=== PATIENT | male | born 1985 | race Caucasian/White ===

== ENCOUNTER 2025-01-04 20:39 | Emergency (ER) | payer BC, SELFPAY ==
[2025-01-04 20:40] VITALS: BMI 28.7
[2025-01-04 21:30] VITALS: BP 130/88; PULSE 98; RESP 20; TEMP 37; O2SAT 95
--- NOTE | 2025-01-04 21:38 | EDRME_ITS ---
Rapid Medical Screening Exam RME Arrival date/time: 01/04/25 20:39 Chief Complaint: Abdominal Pain Time Seen by Provider: 01/04/25 21:37 Vital signs: Vital Signs Temperature 98.6 F 01/04/25 21:30 Pulse Rate 98 01/04/25 21:30 Respiratory Rate 20 01/04/25 21:30 Blood Pressure 130/88 H 01/04/25 21:30 Pulse Oximetry (%) 95 01/04/25 21:30 Oxygen Delivery Method Room Air 01/04/25 21:30 Vital signs reviewed by provider: Yes RME Narrative: 39-year-old male with history of kidney stone 3 years ago on the left presenting to the emergency department with right flank pain x 1 day, now 3 out of 10 after taking with [place]. pain when attempting. Patient is allergic to doxycycline not ceftriaxone.
--- NOTE | 2025-01-04 21:41 | XR_ITS ---
Examination: CT abdomen and pelvis without contrast. Coronal 3-D reconstructions. Sagittal 2-D reconstructions. Date and time of exam:January 04, 2025 10:22 PM Comparison December 26, 2021 INDICATIONS: Right-sided flank pain today history kidney stones CTDI: vol (mGy): , 8.78 DLP: (mGycm): 482 Technique: Axial images of the abdomen have been obtained, 3 mm slice thickness Intravenous contrast material has not been administered. Low dose protocols were performed. One or more of the following dose reduction techniques were used; automated exposure control, adjustment of the mA and/or KV according to patient size, use of iterative reconstruction technique. Findings: Diffuse fatty infiltration throughout the liver Contracted gallbladder No pancreatic or adrenal mass Bilateral 1 to 2 mm renal calculi, no hydronephrosis or ureteral calculi 12 mm fat-containing umbilical hernia No pericecal inflammatory change 2 mm calculus in the urinary bladder No bowel obstruction IMPRESSION: Bilateral 1 to 2 mm renal calculi, no hydronephrosis or ureteral calculi 2 mm calculus in the urinary bladder
[2025-01-04] MEDS: KETOROLAC INJ 60 MG/2 ML VIAL 15 MG IM (21:53)
[2025-01-04] MEDS: ONDANSETRON ODT 4 MG TABRAP PO (21:53)
[2025-01-04 22:37] LABS: Hematocrit 42.3 % (41.0-53.0); Hemoglobin 15.1 g/dL (13.5-16.0); Mean Corpuscular HGB Conc 35.7 g/dl (31.0-37.0); Mean Corpuscular Hemoglobin 29.8 pg (25.0-35.0); Mean Corpuscular Volume 83 fL (80-100); Neutrophils % (Auto) 67 % (37-80); Platelet Count 267 Thou/mm3 (140-440); RDW Standard Deviation 41.1 fL (35.1-43.9); Red Blood Count 5.07 Miln/mm3 (4.50-5.90); White Blood Count 9.9 Thou/mm3 (3.8-10.6)
[2025-01-04 22:38] LABS: Basophils # (Auto) 0.1 Thou/mm3 (0.0-0.2); Basophils % (Auto) 1 % (0-2.5); Eosinophils # (Auto) 0.2 Thou/mm3 (0.0-0.5); Eosinophils % (Auto) 2 % (0-10); Immature Granulocytes % (Auto) 1 % (0-0); Immature Granulocytes Auto 0.05 Thou/mm3 (0.00-0.00); Lymphocytes % (Auto) 20 % (10-50); Monocytes # (Auto) 1.1 Thou/mm3 (0.0-0.8); Monocytes % (Auto) 11 % (0-12); Neutrophils # (Auto) 6.6 Thou/mm3 (1.8-7.7); Nucleated Red Blood Cell % 0 /100 WBC (0)
[2025-01-04 23:02] LABS: Collection Type, Urine Voided
[2025-01-04 23:02] LABS: Alanine Aminotransferase 87 U/L (10-49); Albumin, Serum 4.5 gm/dL (3.5-5.0); Albumin/Globulin Ratio 1.6 (1.2-2.2); Alkaline Phosphatase 83 U/L (46-116); Anion Gap 11 (7-16); Aspartate Amino Transferase 37 U/L (0-34); BUN/Creatinine Ratio 8 Ratio (12-20); Bilirubin,Total 0.5 mg/dL (0.3-1.2); Blood Urea Nitrogen 11 mg/dL (9-23); Calcium 9.1 mg/dL (8.3-10.6); Calcium (Corrected) 9.1 mg/dL (8.5-10.1); Carbon Dioxide 23.4 mMol/L (20.0-31.0); Chloride 107 mMol/L (98-107); Creatinine (Component) 1.3 mg/dL (0.6-1.3); Estimated Creatinine Clearance 87.3 mL/min (>60); Globulin 2.8 gm/dL (2.3-3.5); Glucose 105 mg/dL (74-106); Osmolality,Calculated 280 (275-295); Potassium 3.6 mMol/L (3.4-5.1); Sodium 141 mMol/L (136-145); Total Protein 7.3 gm/dL (5.7-8.2); eGFR > 60 See Note
[2025-01-04 23:17] LABS: Bilirubin,Urine Negative (Negative); Blood,Urine 3+ (Negative); Budding Yeast,Urine Present; Clarity,Urine Turbid (Clear/Hazy); Color,Urine Yellow (Lt Yel-Yel); Culture Indicated,Urine Not Indicated; Glucose, Urine Negative (Negative); Hyaline Casts,Urine < 1 /hpf (0-1); Ketones,Urine Negative (Negative); Leukocyte Esterase,Urine Negative (Negative); Nitrite,Urine Negative (Negative); Protein,Urine Trace (Neg - Trace); RBC,Urine 335 /hpf (0-3); Specific Gravity,Urine 1.024 (1.001-1.035); Squamous Epithelial Cell,Urine < 1 /hpf (0-5); WBC,Urine 5 /hpf (0-5)
--- NOTE | 2025-01-05 01:55 | EDNOTE_ITS ---
ED Abdominal Pain RME/HPI General Chief Complaint: Abdominal Pain Stated complaint: RIGHT FLANK PAIN Time seen by provider: 01/04/25 21:37 Arrival date/time: 01/04/25 20:39 RME / HPI RME / HPI narrative: 39-year-old male with history of kidney stone 3 years ago on the left presenting to the emergency department with right flank pain x 1 day, now 3 out of 10 after taking with [place]. pain when attempting. Patient is allergic to doxycycline not ceftriaxone. Related Data Home Medications ?Medication ?Instructions ?Recorded ?Confirmed acetaminophen 500 mg tablet 500 mg PO Q6HR PRN PAIN #0 tabs 03/11/16 (Tylenol Extra Strength) ofloxacin 0.3 % ear drops 4 drp LEFT EAR TID #5 mL ranitidine HCl 150 mg tablet 150 mg PO BID #0 tabs (Zantac) Previous Rx's ?Medication ?Instructions ?Recorded hydrocodone 5 mg-acetaminophen 325 1 tab PO BID PRN pa in #10 tabs 12/06/20 mg tablet ibuprofen 800 mg tablet 800 mg PO TID PRN pain #30 t abs 12/06/20 hydrocodone 7.5 mg-acetaminophen 1 tab PO Q6H PRN pain #16 tabs 12/26/21 325 mg tablet Allergies Allergy/AdvReac Type Severity Reaction Status Date / Time doxycycline Allergy Severe Hives Verified 01/04/25 21:57 Course Orders Category Date Time Status CT abdomen pelvis wo con Stat Exams 01/04/25 21:41 Completed CBC Stat Lab 01/04/25 22:15 Completed CMP [Comprehensive Metabolic Panel] Stat Lab 01/04/25 22:15 Completed Urinalysis, C/S if Indicated Stat Lab 01/04/25 22:50 Completed Ketorolac Inj [Toradol Inj] Med 01/04/25 21:40 Discontinued 15 mg IM X1 ONE Ondansetron Odt [Zofran Odt] Med 01/04/25 21:43 Discontinued 4 mg PO X1 ONE Vital Signs Vital signs: Vital Signs Temperature 98.6 F 01/04/25 21:30 Pulse Rate 98 01/04/25 21:30 Respiratory Rate 20 01/04/25 21:30 Blood Pressure 130/88 H 01/04/25 21:30 Pulse Oximetry (%) 95 01/04/25 21:30 Oxygen Delivery Method Room Air 01/04/25 21:30 Abdominal Pain MDM Medications / Prescriptions Medication administrations:: Medication Administration History Discontinued Medications Ketorolac Tromethamine (Ketorolac Inj 60 Mg/2 Ml Vial) 15 mg IM X1 ONE Stop: 01/04/25 21:41 Last Admin: 01/04/25 21:53 Dose: 15 mg Documented By: Ondansetron HCl (Ondansetron Odt 4 Mg Tabrap) 4 mg PO X1 ONE; Protocol Stop: 01/04/25 21:44 Last Admin: 01/04/25 21:53 Dose: 4 mg Documented By: Discharge Plan Prescriptions/Referrals Prescriptions/Med Rec: No Action acetaminophen [Tylenol Extra Strength] 500 MG tablet 500 mg PO Q6HR PRN (Reason: PAIN) Qty: 0 ofloxacin 5 ML drops 4 drp LEFT EAR TID Qty: 5 ranitidine HCl [Zantac] 150 MG tablet 150 mg PO BID Qty: 0 ibuprofen 800 mg tablet 800 mg PO TID PRN (Reason: pain) Qty: 30 0RF hydrocodone-acetaminophen 5-325 mg tablet 1 tab PO BID MDD 10 PRN (Reason: pain) Qty: 10 0RF hydrocodone-acetaminophen 7.5-325 mg tablet 1 tab PO Q6H MDD 4 tabs om 24 hours PRN (Reason: pain) Qty: 16 0RF Referrals: Sanjay Whitehead MD [Primary Care Provider] - In 1 week Patient/Caregiver Discharge Instructions Print Language: Lithuanian
--- NOTE | 2025-01-05 01:56 | PD.EDBACK ---
ED Back Injury Pain RME/HPI General Chief Complaint: Abdominal Pain Stated Complaint: RIGHT FLANK PAIN Time Seen by Provider: 01/04/25 21:37 Source: patient Arrival date/time: 01/04/25 20:39 Mode of arrival: ambulatory Limitations: no limitations RME / HPI RME / HPI Narrative: 39-year-old male with history of kidney stone 3 years ago on the left presenting to the emergency department with right flank pain x 1 day, now 3 out of 10 after taking with [place]. pain when attempting. Patient is allergic to doxycycline not ceftriaxone. DR. CRUZ?S MAIN ED EVALUATION: 39-year-old male with history of GERD presenting to the emergency department via private auto who is presenting for chief complaint of right flank pain x 1 day. pain is a 3/10 after [place]. Patient reports allergy to Doxycycline and Rocephin. Patient denies any other associated symptoms or medical complaints. - PMH:?GERD - PSH: Denies - Social history: Former smoker - Current medications: Reviewed PCP is Sanjay Whitehead MD MD Complaint: back pain Onset (ago): day(s) (1) Location: right flank Quality: sharp Severity scale (1-10): 3 (After [place]) Related Data Home Medications ?Medication ?Instructions ?Recorded ?Confirmed acetaminophen 500 mg tablet 500 mg PO Q6HR PRN PAIN #0 tabs 03/11/16 (Tylenol Extra Strength) ofloxacin 0.3 % ear drops 4 drp LEFT EAR TID #5 mL 03/11/16 ranitidine HCl 150 mg tablet 150 mg PO BID #0 tabs 03/11/16 (Zantac) Previous Rx's ?Medication ?Instructions ?Recorded hydrocodone 5 mg-acetaminophen 325 1 tab PO BID PRN pain #10 tabs 12/06/20 mg tablet ibuprofen 800 mg tablet 800 mg PO TID PRN pain #30 tabs 12/06/20 hydrocodone 7.5 mg-acetaminophen 1 tab PO Q6H PRN pain #16 tabs 12/26/21 325 mg tablet codeine sulfate 30 mg tablet 30 mg PO BID PRN pain #10 tabs 01/05/25 erythromycin 5 mg/gram (0.5 %) eye 0.5 inch ophthalmic (eye) TID #3.5 01/05/25 ointment grams Allergies Allergy/AdvReac Type Severity Reaction Status Date / Time doxycycline Allergy Severe Hives Verified 01/04/25 21:57 Review of Systems Review of Systems Systems Reviewed: All systems reviewed, normal except as documented Musculoskeletal Musculoskeletal: Reports other (Right flank pain) Past Medical History Past Medical History GASTROINTESTINAL: Positive Gastroesophageal Reflux Disease Social History SMOKING STATUS: Former smoker ED Exam General Limitations: Present no limitations General appearance: Present alert and other (sweaty) Head Head exam: Present atraumatic, normocephalic and normal inspection Eye Eye exam: Present normal appearance, PERRL and EOMI; Absent nystagmus ENT ENT exam: Present normal exam, normal oropharynx, mucous membranes moist and TM's normal bilaterally Neck Neck exam: Present normal inspection, full ROM and trachea midline; Absent tenderness Chest Chest inspection: Present normal inspection and symmetric chest wall rise; Absent tenderness Respiratory Respiratory exam: Present normal lung sounds bilaterally; Absent respiratory distress, wheezes or stridor Cardiovascular Cardiovascular exam: Present regular rate, normal rhythm and normal heart sounds; Absent rubs or gallop Abdominal Exam Abdominal exam: Present soft and normal bowel sounds; Absent distention, tenderness, guarding or rebound Extremities Exam Extremities exam: Present normal inspection, full ROM and normal capillary refill; Absent tenderness or pedal edema Back Exam Back exam: Present CVA tenderness (R) Neurological Exam Neurological exam: Present alert, oriented X3, CN II-XII intact and normal gait Psychiatric Psychiatric exam: Present normal affect and normal mood; Absent depressed, agitated or anxious Skin Skin exam: Present warm, intact, normal color and diaphoresis; Absent rash Course Quality Measures none Orders Category Date Time Status CT abdomen pelvis wo con Stat Exams 01/04/25 21:41 Completed CBC Stat Lab 01/04/25 22:15 Completed CMP [Comprehensive Metabolic Panel] Stat Lab 01/04/25 22:15 Completed Urinalysis, C/S if Indicated Stat Lab 01/04/25 22:50 Completed Erythromycin Op Oint 0.5% Med 01/05/25 02:01 Discontinued 1 gm BOTH EYES X1 ONE HYDROcodone*/APAP 5/325 [[place] 5/325] Med 01/05/25 02:01 Discontinued 1 tab PO X1 ONE Ketorolac Inj [Toradol Inj] Med 01/04/25 21:40 Discontinued 15 mg IM X1 ONE Ondansetron Odt [Zofran Odt] Med 01/04/25 21:43 Discontinued 4 mg PO X1 ONE Vital Signs Vital signs: Vital Signs Temperature 98.6 F 01/04/25 21:30 Pulse Rate 98 01/04/25 21:30 Respiratory Rate 20 01/04/25 21:30 Blood Pressure 130/88 H 01/04/25 21:30 Pulse Oximetry (%) 95 01/04/25 21:30 Oxygen Delivery Method Room Air 01/04/25 21:30 Back Pain / Injury MDM Narrative MDM Narrative:: Scribe Attestation: 01/05/2025 Tyesha Fischer am scribing for and in the presence of Dr. Cruz. Provider Notation: Although this document has been carefully reviewed, there may still be some phonetic and other typographical errors.? These errors are purely grammatical due to imperfections in the software program and should not be construed in any way to compromise the substance of the patient's medical care during this visit. 39-year-old male with history of GERD presenting to the emergency department via private auto who is presenting for chief complaint of right flank pain x 1 day. ROS: right flank plank x 1 day. Differential diagnoses include UTI, renal colic, renal calculi, and cholecystitis. Patient data External records reviewed:: [facility] previous records (Reviewed prior ED records from 12/26/21. Patient was seen for Acute left flank pain.) Clinical information provided by:: patient Social determinants that could affect healthcare access:: none Patient has the following chronic illnesses:: GERD How is presenting disease/condition affected by chronic disease/condition?: exacerbated by Evaluation data The following diagnostics were reviewed and interpreted by me:: lab results and radiology exam(s) Lab and/or radiology exams considered but not ordered:: None Interpretation Summary: RADIOLOGY Abdomen/Pelvis CT: Findings: Diffuse fatty infiltration throughout the liver Contracted gallbladder No pancreatic or adrenal mass Bilateral 1 to 2 mm renal calculi, no hydronephrosis or ureteral calculi 12 mm fat-containing umbilical hernia No pericecal inflammatory change 2 mm calculus in the urinary bladder No bowel obstruction IMPRESSION: Bilateral 1 to 2 mm renal calculi, no hydronephrosis or ureteral calculi 2 mm calculus in the urinary bladder LABS [place] # 1.1, Immature Gran # 0.05, Immature Gran % 1%. BUN/Creatinine Ratio 8, AST 37, ALT 87. Urine Clarity Turbid, Urine Protein Trace, Urine Blood 3+, Urine RBC 335, Urine Yeast (Budding) Present. Medications / Prescriptions Medications or Prescriptions considered but not ordered:: None Medication administrations:: Medication Administration History Discontinued Medications Hydrocodone Bitart/Acetaminophen (Hydrocodone/Apap 5/325 Tablet) 1 tab PO X1 ONE Stop: 01/05/25 02:02 Last Admin: 01/05/25 02:12 Dose: Not Given Documented By: MEGAN Non-Admin Reason: Wrong Patient Erythromycin (Erythromycin Op Oint 0.5% 1 Gm Packet) 1 gm BOTH EYES X1 ONE Stop: 01/05/25 02:02 Last Admin: 01/05/25 02:12 Dose: Not Given Documented By: MEGAN Non-Admin Reason: Wrong Patient Ketorolac Tromethamine (Ketorolac Inj 60 Mg/2 Ml Vial) 15 mg IM X1 ONE Stop: 01/04/25 21:41 Last Admin: 01/04/25 21:53 Dose: 15 mg Documented By: Ondansetron HCl (Ondansetron Odt 4 Mg Tabrap) 4 mg PO X1 ONE; Protocol Stop: 01/04/25 21:44 Last Admin: 01/04/25 21:53 Dose: 4 mg Documented By: See above if any Consultations Consultation(s) initiated? (list below): No Diagnosis Differential diagnosis back pain/injury: renal colic and other (UTI, renal calculi, and cholecystitis.) Most likely diagnosis given after review of the tests above:: Kidney Stone Admission Indicated Admission indicated?: not indicated Explain why admission is indicated or not indicated:: Does not meet admission criteria. Admission Request Was there a request for admission?: No Disposition Plan Disposition Plan: Discharge Discharge Attestation Discharge Attestation: The patient and all family members were given an opportunity to ask questions and understood the discharge instructions. Discharge instructions specifically effects, indications for sooner follow up or return to the emergency department, and the expected course of current diagnosis. Patient condition: Stable Discharge Plan Plan Patient Disposition: HOME (Self Care) Patient condition on transfer: Stable Prescriptions/Referrals Prescriptions/Med Rec: New codeine sulfate 30 mg tablet 30 mg PO BID MDD 3 PRN (Reason: pain) Qty: 10 0RF erythromycin 5 mg/gram (0.5 %) ointment 0.5 inch ophthalmic (eye) TID Qty: 3.5 0RF No Action acetaminophen [Tylenol Extra Strength] 500 MG tablet 500 mg PO Q6HR PRN (Reason: PAIN) Qty: 0 ofloxacin 5 ML drops 4 drp LEFT EAR TID Qty: 5 ranitidine HCl [Zantac] 150 MG tablet 150 mg PO BID Qty: 0 ibuprofen 800 mg tablet 800 mg PO TID PRN (Reason: pain) Qty: 30 0RF hydrocodone-acetaminophen 5-325 mg tablet 1 tab PO BID MDD 10 PRN (Reason: pain) Qty: 10 0RF hydrocodone-acetaminophen 7.5-325 mg tablet 1 tab PO Q6H MDD 4 tabs om 24 hours PRN (Reason: pain) Qty: 16 0RF Referrals: Sanjay Whitehead MD [Primary Care Provider] - In 1 week Problem List Clinical Impression: Kidney stone Patient/Caregiver Discharge Instructions Education Materials: ED Kidney Stone, Passed Additional Instructions: Start the medications as prescribed. Return to the emergency department if worsening symptoms, you have a fever, you cannot tolerate liquids, or other concerns. You will need to follow-up with your primary care physician so that you can get an appointment with a urologist, IF NEEDED. Continue [id number] Motrin 600 mg as needed 3000 food and/or Tylenol 6 and 50 mg as needed for pain for the last next 2 to 3 days. DISCHARGE INSTRUCTIONS - ADULTS Even though you have been discharged from the Emergency Department, there are several things that you should do to ensure that you receive proper care: 1. DO READ your discharge instructions as these contain important information concerning your medical care. 2. If medication has been prescribed for your condition, fill the prescription as soon as possible and follow the directions on the medication. 3. RETURN AT ONCE TO THE EMERGENCY DEPARTMENT if you have any problems or concerns. These include but are not limited to fever, worsening pain(belly, chest, head, etc?), worsening shortness of breath, uncontrollable bleeding, inability to tolerate food and water, or any condition that makes you question your well-being. Also, if your symptoms do not improve in the next 12-24 hours, return to the ER or seek medical care immediately. 4. Be sure to follow up with your regular physician or specialist as instructed at discharge as this is the best way to ensure that you receive the very best of care. If you do not have a primary care physician, please contact a physician group and make an appointment. 5. Please visit [employer] for coupons regarding your prescriptions. It is a free service for you to use and can help reduce the cost of your medication. We would like to thank you for coming today and our hope is that we served you and your family well during your stay. Print Language: Lithuanian Stand Alone Forms: Ivonne Award Info., Work/School Release, Patient Portal Info Letter
== END 2025-01-05 03:07 | disposition home or self-care (01) ==
PROVIDERS: Emergency Provider Emergency Medicine; PCP Family Medicine
DX: N20.0 Calculus of kidney (principal)
CPT/HCPCS: 36415; 74176; 80053; 81001; 85025; 96372; 99284; J1885; Q0162

== ENCOUNTER → 2025-01-30 | Outpatient (CLI) | payer BC, SELFPAY ==
--- NOTE | 2025-01-30 16:13 | XR_ITS ---
Examination: Shoulder,right, 3 views Technique: Shoulder AP internal rotation, AP external rotation, Y view shoulder, 3 views Exam date and time :January 30, 2025 1627 hours INDICATIONS: Worsening right shoulder pain this month FINDINGS: No fracture or dislocation. Mild narrowing glenohumeral joint No calcific tendinitis IMPRESSION: Mild narrowing glenohumeral joint
--- NOTE | 2025-01-30 16:13 | XR_ITS ---
EXAMINATION: Cervical spine, 5 views Technique: Cervical spine AP, AP odontoid, lateral, bilateral obliques, 5 views Exam date and time: January 30, 2025 1627 hours INDICATIONS: Neck pain months FINDINGS: Adequate alignment cervical vertebral bodies. No cervical fracture. Mild disc narrowing C4-C5. Mild cervical spondylosis. Mild bilateral neural foraminal stenosis C6-C7 Intact odontoid IMPRESSION: Early degenerative disc disease C4-C5 Mild bilateral neural foraminal stenosis C6-C7
--- NOTE | 2025-01-30 16:14 | XR_ITS ---
Examination: Right elbow 3 views Technique: Elbow AP, oblique, lateral 3 views Exam date and time: January 30, 2025 1517 hours INDICATIONS: Elbow pain months getting worse FINDINGS: No fracture or dislocation No elbow effusion No significant arthritic change IMPRESSION: Negative for osseous abnormality.
== END | disposition home or self-care (01) ==
LOC: CDIM 16:05
PROVIDERS: Referring Provider Nurse Practitioner Family; Visit Provider Nurse Practitioner Family
DX: M25.521 Pain in right elbow (principal); M50.321 Other cervical disc degeneration at C4-C5 level; M48.02 Spinal stenosis, cervical region; M25.811 Other specified joint disorders, right shoulder
CPT/HCPCS: 72050; 73030; 73080